=== PATIENT | male | born 1970 | race Caucasian/White ===

== ENCOUNTER 2018-04-06 07:15 | Emergency (ER) | payer BC ==
[~2018-04-06] VITALS: Ht 172.7 cm; Wt 77.1 kg
--- NOTE | 2018-04-06 07:20 | NUR ---
PATIENT TO ED DT RLQ ABDOMINAL PAIN, 04/19, NON RADIATING STARTED 1 HR AGO, -N/V/D. PATIENT IS AFEBRILE. VSS
[2018-04-06] MEDS ORDERED: KETOROLAC TROMETHAMINE 15 MG/ML VIAL ONE (07:34)
[2018-04-06] MEDS ORDERED: ONDANSETRON HCL/PF 4 MG/2 ML VIAL ONE (07:34)
[2018-04-06] MEDS ORDERED: HYDROMORPHONE 1 MG/1 ML DISP.SYRIN ONE ×2 (07:35→09:04)
[2018-04-06] MEDS: IV NS 0.9% 1,000 ML BAG IV ONE (07:41)
[2018-04-06] MEDS: ONDANSETRON HCL/PF 4 MG/2 ML VIAL IVP ONE (07:42)
[2018-04-06] MEDS: KETOROLAC TROMETHAMINE INJ 30 MG/ML VIAL IV ONE (07:43)
[2018-04-06] MEDS: HYDROMORPHONE INJ 2 MG/ML DISP.SYRIN IV ONE ×2 (07:43→09:06)
--- NOTE | 2018-04-06 07:58 | NUR ---
URINE SAMPLE COLLECTED AND SENT TO LAB.
--- NOTE | 2018-04-06 08:07 | NUR ---
PATIENT WAS TAKEN TO CT
[2018-04-06 08:10] LABS: CALCIUM, SERUM 8.6 mg/dL (8.5-10.1); CREATININE 1.4 mg/dL (0.6-1.3); POTASSIUM 3.5 mmol/L (3.5-5.1)
[2018-04-06 08:19] LABS: ALBUMIN 3.6 g/dL (3.4-5.0); BILIRUBIN,DIRECT 0.1 mg/dL (0.0-0.2); BILIRUBIN,TOTAL 0.5 mg/dL (0.2-1.0)
[2018-04-06 08:29] LABS: APPEARANCE,URINE CLEAR (CLEAR); BILIRUBIN,URINE NEGATIVE (NEGATIVE); BLOOD, URINE 2+ Ery/uL (NEGATIVE); COLOR,URINE YELLOW (YELLOW); KETONES,URINE NEGATIVE (NEGATIVE); LEUKOCYTE ESTERASE ,URINE NEGATIVE (NEGATIVE); NITRITE, URINE NEGATIVE (NEGATIVE); PROTEIN,URINE NEGATIVE (NEGATIVE); UGLUCOSE NEGATIVE (NEGATIVE); UROBILINOGEN,URINE 0.2 EU/dL (0.2)
[2018-04-06 08:33] LABS: HEMATOCRIT 41 % (39-51); HEMOGLOBIN 14.4 g/dL (13.5-17.5); MEAN CORPUSCULAR HGB CONC 35 g/dl (31.0-36.0); MEAN CORPUSCULAR VOLUME 92 fL (80-96); PLATELET COUNT (AUTO) 224 /CMM (150-450); RDW COEFFICIENT OF VARIATION 12.4 (11.5-15.0); RED BLOOD CELL COUNT(AUTO) 4.48 MIL/uL (4.5-6.0); WHITE BLOOD COUNT (AUTO) 9.1 K/uL (4.3-11.0)
[2018-04-06 08:34] LABS: BASOPHILS # (AUTO) 0.1 /CMM (0.0-0.2); BASOPHILS % (AUTO) 1.3 % (0.0-2.0); LYMPHOCYTES # (AUTO) 3.2 /CMM (0.8-4.8); LYMPHOCYTES % (AUTO) 34.8 % (20.0-44.0); MONOCYTES # (AUTO) 0.7 /CMM (0.1-1.30); MONOCYTES % (AUTO) 7.9 % (2.0-12.0); NEUTROPHILS # (AUTO) 4.6 /CMM (1.8-8.9)
[2018-04-06 08:36] LABS: BACTERIA,URINE Few /HPF (None Seen); RBC,URINE TOO NUMEROUS TO COUN /HPF (0-2); SQUAMOUS EPITHELIAL CELL,UR Few /HPF (None Seen); WBC,URINE 0-2 /HPF (0-3)
[2018-04-06 08:45] VITALS: BP 130/82
== END 2018-04-06 09:01 | disposition home or self-care (01) ==
LOC: ER 07:16
DX: N23 Unspecified renal colic (principal); Z98.890 Other specified postprocedural states
CPT/HCPCS: 36415; 80048-TC; 80076-TC; 81000-TC; 83690-TC; 85025-TC; A4606; J1170; J1885; J2405; J7030; Z7610